=== PATIENT | male | born 1965 | race Two or more races ===

== ENCOUNTER → 2024-08-06 | Emergency (ER) | payer BC ==
[~2024-08-06] VITALS: Ht 170.2 cm; Wt 68.0 kg
[~2024-08-06] MED LIST: KETO10TA2 PO; KETOROLAC TROMETHAMINE 60 MG VIAL IM ONE
[2024-08-06 17:12] VITALS: BP 117/56; O2SAT 98
== END | disposition home or self-care (01) ==
LOC: ER 16:26
DX: S92.002A Unspecified fracture of left calcaneus, initial encounter for closed fracture (principal); W19.XXXA Unspecified fall, initial encounter; Y93.89 Activity, other specified; Y92.89 Other specified places as the place of occurrence of the external cause; Y99.8 Other external cause status; E11.9 Type 2 diabetes mellitus without complications